=== PATIENT | female | born 2005 | race Caucasian/White ===

== ENCOUNTER → 2024-02-24 14:38 | Outpatient (REF) | payer BC, SELFPAY | LOC: RAD 14:38 | PROVIDERS: ATTENDING PHYSICIAN Nurse Practitioner Adult Health | DX: R05.3 Chronic cough (principal) | CPT/HCPCS: 71046 ==

== ENCOUNTER → 2024-03-02 07:51 | Outpatient (REF) | payer BC, SELFPAY | LOC: RSP 07:51 | PROVIDERS: ATTENDING PHYSICIAN Nurse Practitioner Adult Health | DX: R05.3 Chronic cough (principal) | CPT/HCPCS: 94010 ==